=== PATIENT | male | born 1975 ===

== ENCOUNTER 2018-03-14 08:24 | Day surgery (SDC) | payer OTHER ==
[~2018-03-14] VITALS: Ht 170.2 cm; Wt 85.7 kg
[~2018-03-14 08:24] MED LIST: SUMA25 PO
== END 2018-03-14 23:11 | disposition home or self-care (01) ==
LOC: ORSCMMR 08:24 → ORD 09:45 → ORSCMMR 23:11
PROVIDERS: Surgery
PROC: BF131ZZ Fluoroscopy of Gallbladder and Bile Ducts using Low Osmolar Contrast (ICD-10-PCS; principal; 2018-03-14 09:45)
PROC: 0FT44ZZ Resection of Gallbladder, Percutaneous Endoscopic Approach (ICD-10-PCS; principal; 2018-03-14 09:45)
DX: K80.10 Calculus of gallbladder with chronic cholecystitis without obstruction (principal); F17.210 Nicotine dependence, cigarettes, uncomplicated; Z79.899 Other long term (current) drug therapy
CPT/HCPCS: 74300; 88304; C1729; J0690; J1100; J1885; J2250; J2405; J2710; J3010; J7030; J7120